=== PATIENT | female | born 1965 | race Caucasian/White ===

== ENCOUNTER 2017-11-22 14:45 | Inpatient (IN) | payer OTHER ==
[2017-11-22 15:22] LABS: ADD MAN DIFF? NO
[2017-11-22 15:23] LABS: BASO # 0.1 x10^3/uL (0.0-0.2); BASO % 1 % (0-3); EOS # 0.1 x10^3/uL (0.0-0.7); EOS % 1 % (0-3); HEMATOCRIT 41.9 % (36.0-47.0); HEMOGLOBIN 14.2 g/dL (12.0-15.5); LYMPH # 2.1 x10^3/uL (1.0-4.8); LYMPH % 27 % (24-48); MEAN CORPUSCULAR HEMOGLOBIN 30 pg (25-35); MEAN CORPUSCULAR HGB CONC 34 g/dL (31-37); MEAN CORPUSCULAR VOLUME 88 fL (79-100); MONO # 0.7 x10^3/uL (0.0-1.1); MONO % 9 % (0-9); NEUT # 4.8 x10^3uL (1.8-7.7); NEUT % 62 % (31-73); PLATELET COUNT 317 x10^3/uL (140-400); RED BLOOD COUNT 4.76 x10^6/uL (3.50-5.40); WHITE BLOOD COUNT 7.8 x10^3/uL (4.0-11.0)
[2017-11-22] MEDS: NITROGLYCERIN OINT 1 GM PACKET. TP (15:23)
[2017-11-22 15:35] LABS: ANION GAP 11 (6-14); BLOOD UREA NITROGEN 16 mg/dL (7-20); BUN/CREATININE RATIO 18 (6-20); CALCIUM 9.5 mg/dL (8.5-10.1); CARBON DIOXIDE 25 mmol/L (21-32); CHLORIDE 106 mmol/L (98-107); CREATININE 0.9 mg/dL (0.6-1.0); GFR 65.2; GLUCOSE 102 mg/dL (70-99); POTASSIUM 4.1 mmol/L (3.5-5.1); SODIUM 142 mmol/L (136-145)
[2017-11-22 15:41] LABS: ALBUMIN/GLOBULIN RATIO 1.1 (1.0-1.7); ALK PHOS 76 U/L (46-116); ALT (SGPT) 35 U/L (14-59); AST (SGOT) 29 U/L (15-37); TOTAL BILIRUBIN 0.5 mg/dL (0.2-1.0); TOTAL PROTEIN 7.6 g/dL (6.4-8.2)
[2017-11-22 15:47] LABS: TROPONINI < 0.017 ng/mL (0.000-0.055)
[2017-11-22 15:49] LABS: NT-PRO BNP 134 pg/mL (0-124)
[2017-11-22 15:49] LABS: CKMB INDEX 0.8 % (0-4); CKMB MASS 1.3 ng/mL (0.0-3.6); CREATINE KINASE 160 U/L (26-192)
[2017-11-22] MEDS ORDERED: MORPHINE SULFATE 2 MG/ML DISP.SYRIN. IV (17:45)
[2017-11-22] MEDS ORDERED: hydrALAZINE 20 MG/ML VIAL. IVP (17:45)
[2017-11-22] MEDS ORDERED: traMADol 50 MG TABLET PO (17:45)
[2017-11-22] MEDS ORDERED: ONDANSETRON PF 4 MG/2 ML VIAL. IV (17:45)
[2017-11-22] MEDS: ENOXAPARIN 40 MG/0.4 ML SYRINGE. SQ (18:04)
[2017-11-22] MEDS: ACETAMINOPHEN 325 MG TABLET. PO (18:16)
[2017-11-22] MEDS ORDERED: SUMAtriptan SUCCINATE 100 MG TABLET PO (19:30)
[2017-11-22 20:11] LABS: TROPONINI < 0.017 ng/mL (0.000-0.055)
[2017-11-22] MEDS: PROPRANOLOL ER 80 MG CAP.ER.24H. PO (20:15)
[2017-11-22] MEDS: ELETRIPTAN PO (20:15)
[2017-11-22] MEDS: AMITRIPTYLINE HCL 10 MG TABLET. PO (20:16)
[2017-11-22 23:10] LABS: TROPONINI < 0.017 ng/mL (0.000-0.055)
[2017-11-23] MEDS: FENOFIBRATE,MICRONIZED 134 MG CAPSULE PO (08:11)
[2017-11-23] MEDS: CHOLECALCIFEROL (VITAMIN D3) 1,000 UNIT TABLET PO (08:11)
[2017-11-23] MEDS: ASPIRIN ENTERIC COATED 81 MG TABLET.DR. PO (08:11)
[2017-11-23] MEDS: PANTOPRAZOLE 40 MG TABLET.DR. PO (08:11)
[2017-11-23] MEDS ORDERED: PROPRANOLOL ER 80 MG CAP.ER.24H. PO (09:00)
[2017-11-23 10:15] LABS: ADD MAN DIFF? NO
[2017-11-23 10:19] LABS: BASO % 1 % (0-3); EOS # 0.1 x10^3/uL (0.0-0.7); EOS % 1 % (0-3); HEMATOCRIT 40.4 % (36.0-47.0); HEMOGLOBIN 13.8 g/dL (12.0-15.5); LYMPH # 1.7 x10^3/uL (1.0-4.8); LYMPH % 27 % (24-48); MEAN CORPUSCULAR HEMOGLOBIN 30 pg (25-35); MEAN CORPUSCULAR HGB CONC 34 g/dL (31-37); MEAN CORPUSCULAR VOLUME 88 fL (79-100); MONO # 0.5 x10^3/uL (0.0-1.1); MONO % 8 % (0-9); NEUT # 3.9 x10^3uL (1.8-7.7); NEUT % 63 % (31-73); PLATELET COUNT 287 x10^3/uL (140-400); RED BLOOD COUNT 4.59 x10^6/uL (3.50-5.40); RED CELL DISTRIBUTION WIDTH 12.9 % (11.5-14.5); WHITE BLOOD COUNT 6.3 x10^3/uL (4.0-11.0)
[2017-11-23 10:49] LABS: ANION GAP 5 (6-14); BLOOD UREA NITROGEN 16 mg/dL (7-20); CALCIUM 8.9 mg/dL (8.5-10.1); CARBON DIOXIDE 28 mmol/L (21-32); CHLORIDE 107 mmol/L (98-107); CHOLESTEROL 124 mg/dL (0-200); CREATININE 0.9 mg/dL (0.6-1.0); GFR 65.2; GLUCOSE 116 mg/dL (70-99); HDLC 32 mg/dL (40-60); LDLC 72 mg/dL (0-100); NON-HDL CHOLESTEROL 92 mg/dL (0-129); POTASSIUM 3.8 mmol/L (3.5-5.1); SODIUM 140 mmol/L (136-145); TRIGLYCERIDES 102 mg/dL (0-150); VLDLC 20 mg/dL (0-40)
[2017-11-23 10:53] LABS: CHOLESTEROL/HDL RATIO 3.9
[2017-11-23 11:01] LABS: THYROID STIM HORMONE (TSH) 1.053 uIU/mL (0.358-3.74)
[2017-11-23] MEDS: ENOXAPARIN 40 MG/0.4 ML SYRINGE. SQ (16:23)
[2017-11-23] MEDS: PROPRANOLOL ER 80 MG CAP.ER.24H. PO (21:00)
[2017-11-23] MEDS: AMITRIPTYLINE HCL 10 MG TABLET. PO (21:00)
[2017-11-23] MEDS: DOCUSATE SODIUM 100 MG CAPSULE. PO (22:59)
[2017-11-24] MEDS ORDERED: ASPIRIN ENTERIC COATED 81 MG TABLET.DR. PO (08:00)
[2017-11-24] MEDS: FENOFIBRATE,MICRONIZED 134 MG CAPSULE PO (08:13)
[2017-11-24] MEDS: CHOLECALCIFEROL (VITAMIN D3) 1,000 UNIT TABLET PO (08:13)
[2017-11-24] MEDS: PANTOPRAZOLE 40 MG TABLET.DR. PO (08:13)
[2017-11-24] MEDS: ASPIRIN ENTERIC COATED 81 MG TABLET.DR. PO (08:13)
== END 2017-11-24 11:10 | disposition left against medical advice (07) | DRG 392 ==
LOC: ER 14:45 → 5 NORTH 16:20
DX: K21.9 Gastro-esophageal reflux disease without esophagitis (principal); E66.01 Morbid (severe) obesity due to excess calories; E78.5 Hyperlipidemia, unspecified; F17.210 Nicotine dependence, cigarettes, uncomplicated; F32.9 Major depressive disorder, single episode, unspecified; G43.909 Migraine, unspecified, not intractable, without status migrainosus; I25.10 Atherosclerotic heart disease of native coronary artery without angina pectoris; J84.10 Pulmonary fibrosis, unspecified; K76.0 Fatty (change of) liver, not elsewhere classified; Z82.49 Family history of ischemic heart disease and other diseases of the circulatory system; Z90.49 Acquired absence of other specified parts of digestive tract; N28.9 Disorder of kidney and ureter, unspecified; D71 Functional disorders of polymorphonuclear neutrophils; Z53.21 Procedure and treatment not carried out due to patient leaving prior to being seen by health care provider
CPT/HCPCS: 36415; 71045; 71250; 80048; 80053; 80061; 82553; 83880; 84443; 84484; 85025; 93005; 93306; 99285; 99285-25; J1650

== ENCOUNTER → 2021-03-26 | Outpatient (CLI) | payer OTHER ==
[2017-11-24 07:36] VITALS: BP 123/69
[~2021-03-26] MED LIST: AMIT10TA PO; CHOL100013 PO; ELET40TA PO; FENO135C PO; OMEP20TA63 PO; [UNRECOGNIZED DRUG - CODE] PO
--- NOTE | 2021-03-26 15:41 | RAD ---
EXAM: Bilateral carotid duplex with waveform analysis. CLINICAL HISTORY: Reason: CAROTID ARTERY SYNDROME . TECHNIQUE: Longitudinal and transverse sonographic images of the bilateral carotid arteries was perfo rmed utilizing grayscale, color and spectral Doppler techniques. COMPARISON: None FINDINGS: Right Carotid: Minimal calcified atherosclerosis of the right carotid bulb. Left Carotid: No significant atherosclerosis. Vertebrals: Antegrade flow bilaterally. Right: PSV CCA (cm/s): 107 cm/s PSV ICA (cm/s): 95 cm per sec EDV ICA (cm/s): 34 cm/s PSV ECA (cm/s): 124 cm/s Subclavian PSV (cm/s): ICA/CCA Ratio: Less than 1 Left: PSV CCA (cm/s): 133 cm/s PSV ICA (cm/s): 103 cm/s EDV ICA (cm/s): 31 cm/s PSV ECA (cm/s): 130 cm/s Subclavian PSV (cm/s): ICA/CCA Ratio: Less than 1 IMPRESSION: 1. Minimal calcified atherosclerosis of the right internal carotid artery with less than 50 percent s tenosis. 2. No significant stenosis of left internal carotid artery. Stenosis calculations for CT, MR and conventional angiography are based upon measurement of the dista l ICA diameter in accordance with the NASCET methodology. Stenosis calculations for carotid ultrasou nd studies are derived from validated velocity criteria which are known to correlate with the NASCET methodology. Consensus Panel Antoine-scale and Doppler US Criteria for Diagnosis of ICA Stenosis Degree of Stenosis (%) ICA PSV (Cm/sec) Plaque Estimate (%)* Normal <125 None <50 <125 <50 50-69 125-230 >50 >70 but < near occlusion >230 >50 Near occlusion High, low, or undetectable Visible Total occlusion Undetectable Visible, no detectable lumen *Plaque estimate (diameter reduction) with antoine-scale and color Doppler US Degree of Stenosis (%) ICA/CCA PSV Ratio ICA EDV (cm/sec) Normal <2.0 <40 <50 <2.0 <40 50-69 2.0-4.0 40-100 >70 but < near occlusion >4.0 >100 Near occlusion Variable Variable Total occlusion Not applicable Not applicable Electronically signed by: Raymond Goodson MD (03/26/2021 3:39 PM) [id number]
== END ==
LOC: US 12:07
PROVIDERS: ATTEND Family Medicine
DX: G45.1 Carotid artery syndrome (hemispheric) (principal)
CPT/HCPCS: 93880